=== PATIENT | male | born 1985 | race Caucasian/White ===

== ENCOUNTER 2019-07-28 20:02 | Emergency (ER) | payer OTHER ==
[~2019-07-28] VITALS: Ht 175.3 cm; Wt 72.7 kg
[2019-07-28] MEDS ORDERED: tetanus & diphtheria toxoid (Td) vaccine 0.5ml IMVAC ONE (21:00)
[2019-07-28] MEDS ORDERED: TETanus/Pertussis (Acell)/Diphther VAC/PF (Tdap-Adult) 0.5ml syringe IMVAC ONE (21:05)
[2019-07-28] MEDS ORDERED: LORazepam 1 MG tablet PO ONE (21:05)
[2019-07-28] MEDS ORDERED: morphine 10mg/ml inj. IM ONE (21:05)
[2019-07-28] MEDS ORDERED: LIDOcaine 1% W/epiNEPHrine 1:200,000 10ml vial IJ ONE (21:05)
[2019-07-28] MEDS ORDERED: amox tr/potassium clavulanate 875/125mg TAB PO ONE (21:05)
--- NOTE | 2019-07-28 23:09 | NUR ---
Irrigated with 1 L Sterile water. Pushed extra fluid that was entrapped out of wounds and debrided fat tissue that came out of wound.
[2019-07-28] MEDS ORDERED: NAPR-56 PO (23:10)
[2019-07-28] MEDS ORDERED: AMOX-422 PO (23:10)
[2019-07-28] MEDS ORDERED: HYDR-4353 PO (23:10)
[2019-07-28] MEDS ORDERED: HYDROcodone/acetaminophen 10/325mg tab PO ONE (23:10)
[2019-07-29 00:20] VITALS: BP 120/75
== END 2019-07-29 00:22 ==
LOC: ER 20:02
DX: S41.111A Laceration without foreign body of right upper arm, initial encounter (principal); S47.1XXA Crushing injury of right shoulder and upper arm, initial encounter; F17.200 Nicotine dependence, unspecified, uncomplicated; F10.99 Alcohol use, unspecified with unspecified alcohol-induced disorder; Z79.899 Other long term (current) drug therapy; W54.0XXA Bitten by dog, initial encounter; Y93.89 Activity, other specified; Y92.89 Other specified places as the place of occurrence of the external cause; Y99.8 Other external cause status; Y90.9 Presence of alcohol in blood, level not specified
CPT/HCPCS: 12001; 73060; 90471; 90715; 96372; 99284; J2270